=== PATIENT | female | born 1970 | race Caucasian/White ===

== ENCOUNTER 2022-12-07 05:35 | Day surgery (SDC) | payer BC ==
[2022-11-30 11:07] LABS: BASOPHILS # (AUTO) 0.1 X10'3 (0-0.2); BASOPHILS % (AUTO) 0.5 % (0-1); EOSINOPHILS # (AUTO) 0.2 X10'3 (0-0.9); EOSINOPHILS % (AUTO) 1.8 % (0-6); LYMPHOCYTES # (AUTO) 2.9 X10'3 (1.1-4.8); LYMPHOCYTES % (AUTO) 20.9 % (21-51); MEAN CORPUSCULAR HEMOGLOBIN 30.8 PG (27.0-31.0); MEAN CORPUSCULAR HGB CONC 33.4 g/dL (33.0-36.5); MEAN CORPUSCULAR VOLUME 92.1 FL (78-98); MEAN PLATELET VOLUME 8.5 FL (7.4-10.4); MONOCYTES # (AUTO) 1.1 X10'3 (0-0.9); MONOCYTES % (AUTO) 8.1 % (2-12); NEUTROPHILS # (AUTO) 9.4 X10'3 (1.8-7.7); NEUTROPHILS % (AUTO) 68.7 % (42-75); PRE OP HEMATOCRIT 43.7 % (35.0-45.0); PRE OP HEMOGLOBIN 14.6 g/dL (12.0-16.0); PRE OP PLATELET COUNT 280 X10'3 (140-440); RED BLOOD COUNT 4.74 X10'6 (4.20-5.60); RED CELL DISTRIBUTION WIDTH 13.5 % (11.5-14.5)
[2022-11-30 11:22] LABS: ALBUMIN/GLOBULIN RATIO 1.1 (1.1-1.5); ALKALINE PHOSPHATASE 94 IU/L (46-116); BLOOD UREA NITROGEN 10 MG/DL (7-18); BUN/CREATININE RATIO 13.2 (10.0-20.0); CALCIUM 9.8 MG/DL (8.5-10.1); CHLORIDE 106 MMOL/L (99-107); CREATININE 0.76 MG/DL (0.40-0.90); PRE OP ALT 40 U/L (30-65); PRE OP ANION GAP 7 (8-16); PRE OP AST 23 U/L (10-37); PRE OP BILIRUB, TOTAL 0.4 MG/DL (0.0-1.0); PRE OP GLUCOSE 95 MG/DL (70-104); PRE OP POTASSIUM 3.9 MMOL/L (3.4-5.1); PRE OP SODIUM 142 MMOL/L (135-145); TOTAL PROTEIN 7.5 G/DL (6.4-8.2); eGFR 80 ML/MIN
[2022-12-07] VITALS (9 sets, daily range): BP systolic 105–139; BP diastolic 62–75
[~2022-12-07] VITALS: Ht 154.9 cm; Wt 73.9 kg
[~2022-12-07 05:35] MED LIST: ASPI-147 PO; albuterol 2.5 MG/3 ML nebule NEB ONE; ceFOXitin 2GM-NS 100mL ADDvant 100 ML IV ONE; famotidine 20mg tablet PO ONE; ringers solution, lacted 1,000 ML IV SCH; scopolamine 1mg/72 hr patch TD ONE
[2022-12-07] MEDS ORDERED: BUPIVAcaine/PF 2.5 mg/ml (0.25%) 30ml vial ONE (06:35)
[2022-12-07 06:40] LABS: CLARITY,URINE SLIGHTLY CLOUDY (Clear); COLOR,URINE YELLOW (Yellow); GLUCOSE, URINE NEGATIVE (Neg); KETONES,URINE NEGATIVE (Neg); LEUKOCYTE ESTERASE ,URINE NEGATIVE (Neg); NITRITES, URINE NEGATIVE (Neg); OCCULT BLOOD,URINE SMALL (Neg); PROTEIN,URINE NEGATIVE (Neg); UROBILINOGEN,URINE 0.2 E.U/dL (0.2-1.0)
[2022-12-07 06:45] LABS: UA COLLECTION TYPE CLN CATCH MIDSTREAM
[2022-12-07 06:47] LABS: RBC,URINE 0-2 /HPF (0-2); SQUAMOUS EPITHELIAL CELL,UR MODERATE /LPF (FEW); WBC,URINE 0-4 /HPF (0-4)
[2022-12-07 06:49] LABS: MUCUS STRANDS NONE SEEN /LPF (Neg)
[2022-12-07 06:50] LABS: BACTERIA,URINE 2+ /HPF (Neg)
[2022-12-07] MEDS ORDERED: midazolam 1 mg/ML 2ml injection ONE (08:23)
[2022-12-07] MEDS ORDERED: fentaNYL/PF 50MCG/1 ML 2ML syringe ONE (08:23)
[2022-12-07] MEDS ORDERED: propofol inj 20 ML IV ONE (08:25)
[2022-12-07] MEDS ORDERED: rocuronium 10mg/ml inj IV ONE (08:26)
[2022-12-07] MEDS ORDERED: hydrALAZINE 20mg/ml inj. IV PRN (08:35)
[2022-12-07] MEDS ORDERED: ringers solution, lacted 1,000 ML IV SCH (08:35)
[2022-12-07] MEDS ORDERED: labetalol 20mg/4ml (5mg/ml) syringe IV PRN (08:35)
[2022-12-07] MEDS ORDERED: ondansetron/PF 4mg/2ml inj IV PRN (08:35)
[2022-12-07] MEDS ORDERED: morphine 2 MG/ML inj. syringe IV PRN (08:35)
[2022-12-07] MEDS ORDERED: morphine 4 MG/ML inj SYRINge IV PRN (08:35)
[2022-12-07] MEDS ORDERED: fentaNYL/PF 50MCG/1 ML 2ML syringe IV PRN ×2 (08:35)
[2022-12-07] MEDS ORDERED: LIDOcaine 2% (20mg/ml) 5ml vial ONE (09:02)
[2022-12-07] MEDS ORDERED: sevoflurane 250ml liquid IH ONE (09:02)
[2022-12-07] MEDS ORDERED: dexamethasone sod phosphate 10mg/ml inj ONE (09:02)
[2022-12-07] MEDS ORDERED: glycopyrrolate 0.2mg/ml inj ONE (09:02)
[2022-12-07] MEDS ORDERED: neostigmine methylsulfate 1 MG/ML 10ml vial ONE (09:02)
[2022-12-07] MEDS ORDERED: ondansetron/PF 4mg/2ml inj ONE (09:02)
[2022-12-07] MEDS ORDERED: acetaminophen 1,000mg/100ml IV 100 ML IV ONE (09:09)
--- NOTE | 2022-12-07 10:02 | NUR ---
Received from OR via [facility], accompanied by Anesthesiologist DR BURRELL and report given by Anesthesiologist. ,PT IS GROGGY BUT RESPONDS EASILY TO VERBAL STIMULI. PT PLACED ON BEDSIDE MONITOR, VSS. PT IS RECEIVING 8L O2 TO MASK AND TOLERATING WELL WITH O2 SAT > 95%. WILL TITRATE DOWN PT TOLERATES. PT HAS 20G PIV TO LEFT HAND WITH LR INFUSING ORDERED. PT HAS 3 BANDAGES TO MID/UPPER ABD THAT ARE ALL CDI. PT IS RESTING WITH NO S/S OF DISTRESS/DISCOMFORT NOTED AT THIS TIME. WILL CONTINUE TO ASSESS
[2022-12-07] MEDS ORDERED: HYDROcodone/acetaminophen 10/325mg tab PO ONE (10:55)
--- NOTE | 2022-12-07 12:01 | NUR ---
ABLE TO SAFELY AMBULATE AND TRANSFER SELF. IV TAKEN OUT WITHOUT ANY COMPLICATIONS. ALL DISCHARGE INSTRUCTIONS COVERED WITH PATIENT AND ALL QUESTIONS ANSWERED. PATIENT TAKEN OUT VIA WHEELCHAIR TO PERSONAL VEHICLE WHERE FAMILY/FRIEND DROVE PATIENT HOME.
== END 2022-12-07 11:30 | disposition home or self-care (01) ==
LOC: PAS 05:35
PROVIDERS: ATTEND Surgery
DX: K80.10 Calculus of gallbladder with chronic cholecystitis without obstruction (principal); F17.210 Nicotine dependence, cigarettes, uncomplicated; G43.909 Migraine, unspecified, not intractable, without status migrainosus; E66.9 Obesity, unspecified; Z68.29 Body mass index [BMI] 29.0-29.9, adult; G47.30 Sleep apnea, unspecified; Z98.51 Tubal ligation status; Z98.890 Other specified postprocedural states; Z87.440 Personal history of urinary (tract) infections; Z88.1 Allergy status to other antibiotic agents; Z88.0 Allergy status to penicillin; Z98.1 Arthrodesis status; Z79.899 Other long term (current) drug therapy; Z82.5 Family history of asthma and other chronic lower respiratory diseases; Z82.49 Family history of ischemic heart disease and other diseases of the circulatory system
CPT/HCPCS: 36415; 47562; 80053; 81001; 82948; 85025; 93005; J0131; J0694; J1100; J2250; J2270; J2405; J2704; J2710; J3010; J3490; J7030; J7120; Z7506; Z7512; A4215; A4618; A7000